=== PATIENT | female | born 1965 | race Caucasian/White ===

== ENCOUNTER 2018-10-27 06:33 | Day surgery (SDC) | payer OTHER ==
--- NOTE | 2018-10-26 14:20 | PREOPHP ---
DATE OF ADMISSION: 10/27/2018 HISTORY OF PRESENT ILLNESS: This 53-year-old patient is admitted for elective pterygium excision of the right eye. The patient has had this growth for a number of years and it appears to be enlarging and interfering with vision. Patient has used Artificial Tears for symptomatic relief. The patient also notes floaters present in both eyes. The patient has no history of systemic illnesses and is no t on any medication. ALLERGIES: There are no known allergies. PHYSICAL EXAMINATION: The visual acuity without correction is 20/70 in the right eye and 20/40 in th e left eye. Slit lamp examination reveals an injected nasal pterygium extending into the mid nasal i ris. Applanation tonometry is 15 mmHg. Examination of the retina is within normal limits. There ar e vitreous floaters present in both eyes. DIAGNOSIS: Visually significant pterygium, right eye. PLAN: Pterygium excision with mitomycin C application and rotating conjunctival graft, right eye. T he risks and alternatives to the surgery have been discussed with the patient as well as the potentia l risk of recurrence of the pterygium. The patient understands this and agrees to proceed with surge ry. Dictated By: NEIDA MARIE/MIROSLAVA Conf#: [id number] DID#: [id number]
[2018-10-27] VITALS (8 sets, daily range): BP systolic 108–123; BP diastolic 45–72; PULSE 50–68; RESP 14–19; Ht 149.9 cm; Wt 52.0 kg
[~2018-10-27] VITALS: Ht 149.9 cm; Wt 52.0 kg
[2018-10-27] MEDS ORDERED: BALANCED SALT SOLN 15 ML OPH IRRIG ONE (07:00)
[2018-10-27] MEDS ORDERED: MOXIFLOXACIN 0.5% 3 ML OPH OPER SCH (08:00)
[2018-10-27] MEDS ORDERED: SOD CHLORIDE 0.9% 1,000 ML IV SCH (08:00)
[2018-10-27] MEDS ORDERED: MITOMYCIN 5 MG INJ RIGHT EYE ONE (09:00)
[2018-10-27] MEDS ORDERED: BUPIVACAINE 0.5% (SDV) 30 ML INJ ONE (09:27)
[2018-10-27] MEDS ORDERED: LIDOCAINE 1% (MPF) 30 ML INJ ONE (09:28)
[2018-10-27] MEDS ORDERED: TETRACAINE 0.5% 4 ML OPH ONE (09:28)
[2018-10-27] MEDS ORDERED: TOBRAMYCIN 0.3% 3.5 GM OPH OINT ONE (09:29)
--- NOTE | 2018-10-27 09:40 | PREAC ---
Date/Time of Note Date/Time of Note DATE: 10/27/18 TIME: 09:37 Anesthesia Eval and Record Evaluation Time Pre-Procedure Interview DATE: 10/27/18 TIME: 09:37 Age 53 Sex female NPO: 8 hrs Preoperative diagnosis Right Eye Pterygium Planned procedure Right Eye Excision of Pterygium Past Medical History Past Medical History: None Surgery & Anesthesia Issues No known issue Meds Anticoagulation: No Beta Kaley within 24 hr: No Reason Beta Kaely not given: Pt. not on B-Kaley No Active Prescriptions or Reported Meds Current Medications Moxifloxacin HCl (Vigamox) 1 drop Q5 MIN X 3 OPER Last administered on 10/27/18at 07:56; Admin Dose 1 DROP; Start 10/27/18 at 08:00 Sodium Chloride 1,000 ml @ 25 mls/hr Q24H IV Last administered on 10/27/18at 07:56; Admin Dose 25 MLS/HR; Start 10/27/18 at 08:00 Meds reviewed: Yes Allergies Coded Allergies: No Known Allergy (Unverified , 10/27/18) Allergies Reviewed: Yes Labs/Studies Labs Reviewed: Reviewed by anesthesiologist test: Negative Studies: ECG (n/a), CXR (n/a) Pre-procedure Exam Last vitals Vital Signs Date Temp Pulse Resp B/P (MAP) Pulse Ox O2 O2 Flow FiO2 Time Delivery Rate 10/27/18 97.0 62 16 108/61 99 Room Air 08:15 (77) Airway: Adequate mouth opening, Adequate thyromental dist Mallampati: Mallampati II Teeth: Normal Lung: Normal Heart: Normal ASA Physical Status ASA physical status: 2 Emergency: None Planned Anesthetic General/MAC: MAC Planned Pain Management Parenteral pain med Pre-operative Attestations Prior to commencing anesthesia and surgery, the patient was re-evaluated, there was verification of: *The patient's identity *The results of appropriate recent lab work and preoperative vital signs *The above evaluation not changing prior to induction *Anesthetic plan, risk benefits, alternative and complications discussed with patient/family; questions answered; patient/family understands, accepts and wishes to proceed. ATUL KELLY MD Oct 27, 2018 09:40
[2018-10-27] MEDS ORDERED: PROPOFOL 20 ML ONE (09:45)
[2018-10-27] MEDS ORDERED: LIDOCAINE 1.5%/EPI MPF (SDV) 30 ML VIAL ONE (09:47)
[2018-10-27] MEDS ORDERED: HYDROmorphONE 1 MG/5 ML IV SYRINGE IV PRN (10:00)
[2018-10-27] MEDS ORDERED: FENTAnyl 50 MCG/ML VIAL IV PRN (10:00)
[2018-10-27] MEDS ORDERED: OXYCODONE/ACETAMINOPHEN (5/325) TAB PO PRN (10:00)
[2018-10-27] MEDS ORDERED: ONDANSETRON 4 MG INJ IV PRN (10:00)
--- NOTE | 2018-10-27 10:23 | PAC ---
Date/Time of Note Date/Time of Note DATE: 10/27/18 TIME: 10:23 Post-Anesthesia Notes Post-Anesthesia Note Last documented vital signs Vital Signs Date Temp Pulse Resp B/P (MAP) Pulse Ox O2 O2 Flow FiO2 Time Delivery Rate 10/27/18 97.0 62 16 108/61 99 Room Air 10:25 (77) Activity: WNL Respiratory function: WNL Cardiovascular function: WNL Mental status: Baseline Pain reasonably controlled: Yes Hydration appropriate: Yes Nausea/Vomiting absent: Yes ATUL KELLY MD Oct 27, 2018 10:23
--- NOTE | 2018-10-27 10:36 | SIPON ---
Date/Time of Note Date/Time of Note DATE: 10/27/18 TIME: 10:34 Operative Report Preoperative Diagnosis Pterygium od Postoperative Diagnosis same Operation/Procedure Performed pterygium excision with MMC application & rotating conjunctival graft od Surgeon neida perry credentialing assistant none Anesthesia: MAC Estimated blood loss: none Transfusion Required none Specimen none Grafts/Implants conjunctival graft Complications none NEIDA PERRY MD Oct 27, 2018 10:36
--- NOTE | 2018-10-27 11:05 | OPR ---
DATE OF OPERATION: 10/27/2018 PREOPERATIVE DIAGNOSIS: Visually significant nasal pterygium, right eye. POSTOPERATIVE DIAGNOSIS: Visually significant nasal pterygium, right eye. OPERATION PERFORMED: Pterygium excision with mitomycin C and rotating conjunctival graft, right eye. SURGEON: Neida Swenson MD ANESTHESIA: Dr. Carrasquillo. DESCRIPTION OF PROCEDURE: The patient was brought to the operating room on an eye gurney, attached to electrocardiogram monitoring and given oxygen via nasal cannula. The patient was then prepped and draped in the usual sterile manner and some intravenous sedation was administered prior to giving the patient a local anesthetic injection of lidocaine 1.5% mixed with epinephrine in, a subconjunctival injection beneath the bed of the pterygium as well as in the superior limbal area. Following this, a Vannas scissors were used to dissect conjunctiva and Tenon's layer at the tail end of the pterygium from the adjacent tissue and to dissect this to the corneoscleral limbus. Following this, a curved blade was used to dissect the head of the pterygium off the surface of the cornea to the mid nasal iris plane. After this was completed, a vaibhav tipped bur was used to angolan the corneal bed of the pterygium. Hemostasis was obtained with light cautery on the exposed sclerae in the nasal quadrant. A peritomy was performed in the superior disinserting the superior conjunctiva from the limbus extending from the edge of the pterygium excision area to the superotemporal region. The conjunctiva was then dissected way superiorly for approximately 3 to 4 mm, and then the incision was extended back towards the nasal quadrant, creating a tongue of conjunctiva. The scleral bed of the previously excised pterygium was dried and then Tisseel adhesive was applied to the scleral surface and then the tongue of previously dissected conjunctiva was brought over it and laid down adjacent to the nasal corneoscleral limbus. This was allowed to harden when came in contact with the Tisseel and some excess Tisseel was then dissected away from the wound. It was noted that the rotating graft remained stable and at this point, the speculum was removed. TobraDex ointment was applied to the eyelid and then a pressure patch was placed over the eyelids. The patient then left the operating room in satisfactory condition. Dictated By: NEIDA MARIE/MIROSLAVA Conf#: [id number] [facility]#: [id number] MTDD
== END 2018-10-27 11:41 | disposition home or self-care (01) ==
LOC: SDS 06:33
PROVIDERS: ATTEND Ophthalmology
DX: H11.001 Unspecified pterygium of right eye (principal)
CPT/HCPCS: 65420; J9280; Z7512; Z7610